=== PATIENT | female | born 1960 | race Caucasian/White ===

== ENCOUNTER 2018-04-27 10:16 | Emergency (ER) | payer OTHER ==
[~2018-04-27] VITALS: Ht 165.1 cm; Wt 74.8 kg
[~2018-04-27 10:16] MED LIST: BACTROBAN TP; DORYX100 MG PO; FOSAMAX5 MG; FOSAMAX70 MG; HIBICLENS TP; MUCINEX D1 TAB.SR1 PO; ZITHROMAX500 MG PO
[2018-04-27] MEDS ORDERED: COZAAR25 MG (10:53)
[2018-04-27] MEDS ORDERED: KETO10TA2 PO (15:35)
[2018-04-27] MEDS ORDERED: CIPRO500 MG PO (15:35)
[2018-04-27] MEDS ORDERED: LEVSIN/SL0.125 MG PO (15:36)
[2018-04-27] MEDS ORDERED: INTESTINEX680 M1 PO (15:36)
== END 2018-04-27 20:06 | disposition home or self-care (01) ==
LOC: ER 10:16
DX: I88.0 Nonspecific mesenteric lymphadenitis (principal)

== ENCOUNTER 2018-05-01 18:42 | Emergency (ER) | payer OTHER ==
[~2018-05-01] VITALS: Ht 157.5 cm; Wt 72.1 kg
[~2018-05-01 18:42] MED LIST changes: +CIPRO500 MG PO; +COZAAR25 MG; +INTESTINEX680 M1 PO; +KETO10TA2 PO; +LEVSIN/SL0.125 MG PO
== END 2018-05-01 20:52 | disposition home or self-care (01) ==
LOC: ER 18:42
DX: N61.1 Abscess of the breast and nipple (principal)

== ENCOUNTER 2019-09-22 20:58 | Emergency (ER) | payer OTHER ==
[~2019-09-22] VITALS: Ht 157.5 cm; Wt 72.6 kg
[2019-09-22] MEDS ORDERED: METFORMIN HCL500 M4 PO (21:08)
[2019-09-22] MEDS ORDERED: ATORVASTATIN CA20 MG PO (21:09)
[2019-09-22] MEDS ORDERED: TOPROL XL50 M1 PO (21:09)
[2019-09-22] MEDS ORDERED: PROTONIX20 MG PO (21:10)
[2019-09-23] MEDS ORDERED: LEVSIN/SL0.125 MG PO (08:54)
[2019-09-23] MEDS ORDERED: NASAL MIST126 ML NASAL (08:55)
[2019-09-23] MEDS ORDERED: PROTONIX20 MG PO (08:55)
[2019-09-23] MEDS ORDERED: LEVAQUIN500 MG PO (08:55)
== END 2019-09-23 09:03 | disposition home or self-care (01) ==
LOC: ER 20:58
DX: L73.2 Hidradenitis suppurativa (principal); K59.09 Other constipation; M81.0 Age-related osteoporosis without current pathological fracture; J02.8 Acute pharyngitis due to other specified organisms; A54.5 Gonococcal pharyngitis; B00.2 Herpesviral gingivostomatitis and pharyngotonsillitis; B08.5 Enteroviral vesicular pharyngitis; B27.90 Infectious mononucleosis, unspecified without complication; J02.0 Streptococcal pharyngitis; R10.2 Pelvic and perineal pain; N39.0 Urinary tract infection, site not specified; R10.9 Unspecified abdominal pain; N61.1 Abscess of the breast and nipple; R10.11 Right upper quadrant pain

== ENCOUNTER 2019-10-09 07:28 | Outpatient (CLI) | payer OTHER ==
[~2019-10-09 07:28] MED LIST changes: +ATORVASTATIN CA20 MG PO; +LEVAQUIN500 MG PO; +METFORMIN HCL500 M4 PO; +NASAL MIST126 ML NASAL; +PROTONIX20 MG PO; +TOPROL XL50 M1 PO
== END 2019-10-09 07:40 | disposition home or self-care (01) ==
LOC: NUCLEAR 07:28
PROVIDERS: ATTEND Internal Medicine
DX: K57.00 Diverticulitis of small intestine with perforation and abscess without bleeding (principal); E11.9 Type 2 diabetes mellitus without complications; E11.51 Type 2 diabetes mellitus with diabetic peripheral angiopathy without gangrene; K57.10 Diverticulosis of small intestine without perforation or abscess without bleeding; E55.9 Vitamin D deficiency, unspecified; E66.8 Other obesity; M89.8X0 Other specified disorders of bone, multiple sites; G62.89 Other specified polyneuropathies; E11.42 Type 2 diabetes mellitus with diabetic polyneuropathy; K80.12 Calculus of gallbladder with acute and chronic cholecystitis without obstruction; M81.0 Age-related osteoporosis without current pathological fracture; Z13.820 Encounter for screening for osteoporosis
CPT/HCPCS: 78227; J2805; A9537

== ENCOUNTER 2019-11-03 06:48 | Outpatient (CLI) | payer OTHER ==
[2019-11-07] MEDS ORDERED: PANTOPRAZOLE SO40 MG PO (08:45)
[2019-11-07] MEDS ORDERED: NEURIN PO (08:46)
[2019-11-07] MEDS ORDERED: GLUMETZA1000 MG PO (08:46)
[2019-11-07] MEDS ORDERED: VASOFL PO (08:47)
== END 2019-11-03 06:56 | disposition home or self-care (01) ==
LOC: LAB 06:48
PROVIDERS: ATTEND Specialist
DX: Z20.828 Contact with and (suspected) exposure to other viral communicable diseases (principal); Z11.59 Encounter for screening for other viral diseases

== ENCOUNTER 2019-11-14 05:00 | Day surgery (SDC) | payer OTHER ==
[~2019-11-14 05:00] MED LIST changes: +GLUMETZA1000 MG PO; +NEURIN PO; +PANTOPRAZOLE SO40 MG PO; +VASOFL PO
== END 2019-11-14 12:05 | disposition home or self-care (01) ==
LOC: CIR.AMB 05:00
PROVIDERS: ATTEND Specialist
DX: K81.1 Chronic cholecystitis (principal); Z20.828 Contact with and (suspected) exposure to other viral communicable diseases

== ENCOUNTER → 2020-07-03 | Emergency (ER) | payer OTHER ==
[~2020-07-03] VITALS: Ht 157.5 cm; Wt 72.6 kg
[~2020-07-03] MED LIST changes: +LEVSIN/SL0.125 MG SL; +PEPCID AC20 MG PO
== END | disposition home or self-care (01) ==
LOC: ER 13:59
DX: R10.84 Generalized abdominal pain (principal)

== ENCOUNTER 2021-12-05 09:23 | Emergency (ER) | payer OTHER ==
[~2021-12-05] VITALS: Ht 157.5 cm; Wt 72.6 kg
[2021-12-05] MEDS ORDERED: GLIMEPIRIDE2 M1 PO (09:43)
[2021-12-05] MEDS ORDERED: NORVASC5 MG PO (09:44)
== END 2021-12-05 18:26 | disposition home or self-care (01) ==
LOC: ER 09:23
DX: N39.0 Urinary tract infection, site not specified (principal); K57.30 Diverticulosis of large intestine without perforation or abscess without bleeding; Z88.0 Allergy status to penicillin; Z88.8 Allergy status to other drugs, medicaments and biological substances; I10 Essential (primary) hypertension; E11.9 Type 2 diabetes mellitus without complications; Z79.84 Long term (current) use of oral hypoglycemic drugs

== ENCOUNTER 2021-12-29 18:04 | Emergency (ER) | payer OTHER ==
[~2021-12-29] VITALS: Ht 157.5 cm; Wt 72.6 kg
[~2021-12-29 18:04] MED LIST changes: +GLIMEPIRIDE2 M1 PO; +NORVASC5 MG PO
[2021-12-29] MEDS ORDERED: METFORMIN HCL500 M3 (18:33)
== END 2021-12-29 23:00 | disposition home or self-care (01) ==
LOC: ER 18:04
DX: J09.X2 Influenza due to identified novel influenza A virus with other respiratory manifestations (principal)

== ENCOUNTER 2022-01-14 11:08 | Emergency (ER) | payer OTHER ==
[~2022-01-14] VITALS: Ht 157.5 cm; Wt 72.6 kg
[~2022-01-14 11:08] MED LIST changes: +METFORMIN HCL500 M3
[2022-01-14] MEDS ORDERED: PEPCID AC20 MG PO (19:22)
[2022-01-14] MEDS ORDERED: CARAFATE1 GM PO (19:22)
== END 2022-01-14 19:38 | disposition home or self-care (01) ==
LOC: ER 11:08
DX: K52.9 Noninfective gastroenteritis and colitis, unspecified (principal); R10.13 Epigastric pain; I10 Essential (primary) hypertension; E11.9 Type 2 diabetes mellitus without complications; Z79.84 Long term (current) use of oral hypoglycemic drugs; Z88.0 Allergy status to penicillin; Z88.8 Allergy status to other drugs, medicaments and biological substances

== ENCOUNTER 2023-01-25 09:41 | Emergency (ER) | payer OTHER ==
[~2023-01-25] VITALS: Ht 157.5 cm; Wt 79.4 kg
[~2023-01-25 09:41] MED LIST changes: +CARAFATE1 GM PO
[2023-01-25] MEDS ORDERED: METFORMIN HCL500 M3 PO (09:55)
[2023-01-25] MEDS ORDERED: NORVASC5 MG PO (09:55)
[2023-01-25] MEDS ORDERED: PROTONIX40 M1 PO (09:55)
[2023-01-25] MEDS ORDERED: KAPSPARGO SPRIN50 MG PO (09:56)
[2023-01-25] MEDS ORDERED: ATORVALIQ20 MG/5 ML PO (09:56)
[2023-01-25] MEDS ORDERED: GLIMEPIRIDE2 M1 PO (09:56)
[2023-01-25] MEDS ORDERED: COZAAR50 MG PO (09:57)
[2023-01-25 11:19] LABS: HEMATOCRIT 37.9 % (36.0-45.00); HEMOGLOBIN 12.9 g/dL (12.0-15.00); MEAN CELL VOLUME 83.3 fL (80.00-100.00); MEAN CORPUSCULAR HEMOGLOBIN 28.2 pg (27.00-32.0); MEAN CORPUSCULAR HGB CONC 33.9 g/dl (32.0-36.0); PLATELET COUNT 212 K/uL (150-450); RED BLOOD COUNT 4.55 M/uL (4.00-6.00); RED CELL DISTRIBUTION WIDTH 16.4 % (11.5-14.5)
[2023-01-25 11:37] LABS: URINE APPEARANCE Clear; URINE BILIRRUBIN Negative (NEGATIVE); URINE BLOOD Negative; URINE COLOR Yellow; URINE GLUCOSE Negative (NEGATIVE); URINE LEUKOCYTE Small; URINE NITRATE Negative; URINE PROTEIN Negative (NEGATIVE); URINE UROBILINOGEN 0.2 E.U./dl
[2023-01-25 11:41] LABS: URINE EPITHELIAL CELLS 9.1 uL (0.0-38.8); URINE RBC 4.7 uL (0.0-20.8)
[2023-01-25 11:53] LABS: CALCIUM 9.4 mg/dL (8.5-10.1); CREATININE SERUM 0.96 mg/dL (0.55-1.02); GFR 58.89; POTASSIUM 3.84 mEq/L (3.5-5.1)
[2023-01-25] MEDS ORDERED: MIRALAX17 GM PO (14:28)
[2023-01-25] MEDS ORDERED: DULCOLAX5 MG PO (14:28)
[2023-01-25] MEDS ORDERED: INTESTINEX680 M1 PO (14:28)
== END 2023-01-25 15:10 | disposition home or self-care (01) ==
LOC: ER 09:42
PROVIDERS: General Practice
DX: R10.30 Lower abdominal pain, unspecified (principal); K59.00 Constipation, unspecified

== ENCOUNTER 2023-07-03 11:30 | Emergency (ER) | payer OTHER ==
[~2023-07-03] VITALS: Ht 157.5 cm; Wt 77.1 kg
[~2023-07-03 11:30] MED LIST changes: +ATORVALIQ20 MG/5 ML PO; +COZAAR50 MG PO; +DULCOLAX5 MG PO; +KAPSPARGO SPRIN50 MG PO; +METFORMIN HCL500 M3 PO; +MIRALAX17 GM PO; +PROTONIX40 M1 PO
[2023-07-03] MEDS ORDERED: FAMOTIDINE/PF 20 MG/2 ML VIAL IV ONE (14:45)
[2023-07-03] MEDS ORDERED: ONDANSETRON HCL 2 MG/ML VIAL IV ONE (14:45)
[2023-07-03 15:32] LABS: HEMATOCRIT 42.2 % (36.0-45.00); HEMOGLOBIN 14.3 g/dL (12.0-15.00); MEAN CELL VOLUME 89.4 fL (80.00-100.00); MEAN CORPUSCULAR HEMOGLOBIN 30.2 pg (27.00-32.0); MEAN CORPUSCULAR HGB CONC 33.8 g/dl (32.0-36.0); PLATELET COUNT 237 K/uL (150-450); RED BLOOD COUNT 4.73 M/uL (4.00-6.00); RED CELL DISTRIBUTION WIDTH 16.7 % (11.5-14.5)
[2023-07-03 15:54] LABS: PH,URINE 5.5 (5.0-8.0); URINE APPEARANCE Cloudy; URINE BILIRRUBIN Negative (NEGATIVE); URINE BLOOD Negative; URINE COLOR Yellow; URINE GLUCOSE Negative (NEGATIVE); URINE LEUKOCYTE Small; URINE NITRATE Negative; URINE PROTEIN Trace (NEGATIVE)
[2023-07-03 15:55] LABS: URINE BACTERIA 888.1 uL (0.0-1933); URINE EPITHELIAL CELLS 145.4 uL (0.0-38.8); URINE RBC 25.8 uL (0.0-20.8); URINE WBC 40.9 uL (0.0-23.2)
[2023-07-03 16:04] LABS: ALBUMIN 3.7 gm/dL (3.4-5.0); BILIRUBIN TOTAL 1.21 mg/dL (0.3-1.2); CALCIUM 9.1 mg/dL (8.5-10.1); CREATININE SERUM 1.19 mg/dL (0.55-1.02); GFR 45.96; GLOBULINA 4.1 G/DL (2.4-3.5); POTASSIUM 3.69 mEq/L (3.5-5.1); TOTAL PROTEIN 7.8 gm/dL (6.4-8.2)
[2023-07-03 17:25] LABS: URINE CRYSTALS NEGATIVE /HPF; URINE MUCUS NEGATIVE
[2023-07-03] MEDS ORDERED: PEPCID AC20 MG PO (18:08)
[2023-07-03] MEDS ORDERED: ONDANSETRON ODT4 MG SL (18:08)
[2023-07-03] MEDS ORDERED: NITROFURANTOIN100 MG PO (18:08)
== END 2023-07-03 18:21 ==
LOC: ER 11:30
PROVIDERS: General Practice; Nurse Practitioner Family
DX: R10.13 Epigastric pain (principal); Z88.0 Allergy status to penicillin; Z88.8 Allergy status to other drugs, medicaments and biological substances; K57.32 Diverticulitis of large intestine without perforation or abscess without bleeding; K58.8 Other irritable bowel syndrome; I10 Essential (primary) hypertension; E11.9 Type 2 diabetes mellitus without complications; Z79.84 Long term (current) use of oral hypoglycemic drugs
CPT/HCPCS: 36415; 96365; 99282; J2405; J3490